=== PATIENT | male | born 1975 | race Caucasian/White ===

== ENCOUNTER 2016-09-12 19:24 | Emergency (ER) | payer OTHER ==
[~2016-09-12] VITALS: Ht 185.4 cm; Wt 119.3 kg
[2016-09-12] MEDS ORDERED: MOTRIN600 MG PO (21:14)
[2016-09-12] MEDS ORDERED: NORCO 5/3251 TABLET PO (21:14)
[2016-09-12 21:49] VITALS: BP 142/103
== END 2016-09-12 21:52 | disposition home or self-care (01) ==
LOC: EME 19:24 → EDBD 19:24 → EME 21:52
DX: S50.01XA Contusion of right elbow, initial encounter (principal); V29.88XA Motorcycle rider (driver) (passenger) injured in other specified transport accidents, initial encounter; Y92.410 Unspecified street and highway as the place of occurrence of the external cause; Z87.891 Personal history of nicotine dependence
CPT/HCPCS: 73080; 99281; 99284